=== PATIENT | male | born 1975 | race Asian ===

== ENCOUNTER 2019-06-18 20:59 | Emergency (ER) | payer BC ==
[~2019-06-18] VITALS: Ht 170.2 cm; Wt 69.9 kg
[2019-06-18 21:04] VITALS: Ht 170.2 cm; Wt 69.9 kg
[2019-06-18 22:55] VITALS: BP 118/46
== END 2019-06-18 22:55 | disposition home or self-care (01) ==
LOC: ED 20:59
DX: S61.215A Laceration without foreign body of left ring finger without damage to nail, initial encounter (principal); W26.0XXA Contact with knife, initial encounter; Y93.89 Activity, other specified; Y92.89 Other specified places as the place of occurrence of the external cause; Y99.8 Other external cause status
CPT/HCPCS: J2001

== ENCOUNTER 2019-06-20 20:18 | Emergency (ER) | payer OTHER ==
[~2019-06-20] VITALS: Ht 170.2 cm; Wt 70.8 kg
[2019-06-20 20:26] VITALS: Ht 170.2 cm; Wt 70.8 kg
[2019-06-20 21:59] VITALS: BP 112/38
== END 2019-06-20 21:59 | disposition home or self-care (01) ==
LOC: ED 20:18
DX: S61.205A Unspecified open wound of left ring finger without damage to nail, initial encounter (principal); W26.0XXA Contact with knife, initial encounter; Y93.89 Activity, other specified; Y92.89 Other specified places as the place of occurrence of the external cause; Y99.8 Other external cause status